=== PATIENT | female | born 1950 | race Caucasian/White ===

== ENCOUNTER 2016-09-10 15:26 | Inpatient (IN) | payer MEDICAID ==
[~2016-09-10] VITALS: Ht 152.4 cm; Wt 84.3 kg
[~2016-09-10 15:26] MED LIST: ASPI81TA3 PO; ATOR40TA68 PO; CALC200T26 PO; CHOL100062 PO; DOCU-144 PO; FERGON PO; FURO20TA3 PO; HYDR-3671 PO; IBUP-1542 PO; ISOS30TA5 PO; LANT3I SC; NITR0.4T6 SL
[2016-09-10] MEDS ORDERED: SOD CHLORIDE 0.9% 1,000 ML IV STA ×2 (15:31→17:10)
--- NOTE | 2016-09-10 16:32 | RADRPT ---
PROCEDURE: Chest Radiograph. CLINICAL INDICATION: Sepsis TECHNIQUE: Single frontal chest radiograph. COMPARISON: Chest radiograph 02/10/2016 FINDINGS: Heart size is within normal limits. Atherosclerotic calcifications are present. No infiltrate or effusion is seen. The bones are intact. IMPRESSION: 1. No evidence of acute cardiopulmonary disease. 2. Atherosclerotic vascular disease. RPTAT: KK .Pasha Obrien MD, Date Time Electronically viewed and signed by .Pasha Obrien MD, MD on 09/10/2016 16:31 .B/
[2016-09-10 16:37] LABS: ADD SCAN DIFF NO
[2016-09-10 16:38] LABS: BASOPHILS % 0.4 % (0.0-2.0); EOSINOPHILS # 0.1 10^3/ul (0.0-0.5); EOSINOPHILS % 0.9 % (0.0-7.0); HEMATOCRIT 26.1 % (37.0-47.0); HEMOGLOBIN 8.5 g/dl (12.0-16.0); MEAN CORPUSCULAR HGB CONC 32.6 g/dl (32.0-37.0); MEAN CORPUSCULAR VOLUME 85.9 fl (82.0-101.0); MEAN PLATELET VOLUME 12.1 fl (7.4-10.4); MONOCYTE # 0.5 10^3/ul (0.3-0.9); MONOCYTES % 6.4 % (0.0-11.0); NEUTROPHIL # 5.1 10^3/ul (1.6-7.5); NEUTROPHILS % 66.2 % (39.0-77.0); PLATELET COUNT 173 10^3/UL (140-415); RED BLOOD COUNT 3.04 10^6/ul (4.20-5.40); RED CELL DISTRIBUTION WIDTH 13.5 % (11.5-14.5); WHITE BLOOD COUNT 7.7 10^3/ul (4.8-10.8)
[2016-09-10 16:50] LABS: ALBUMIN 2.9 g/dl (3.3-4.9); CHLORIDE 107 mmol/L (97-110); POTASSIUM 5.5 mmol/L (3.5-5.1); SODIUM 135 mmol/L (135-144)
[2016-09-10 16:51] LABS: INR 0.98
[2016-09-10 16:52] LABS: BILIRUBIN,INDIRECT 0.1 mg/dl (0-1.1); BILIRUBIN,TOTAL 0.1 mg/dl (0.2-1.3); CREATININE 3.66 mg/dl (0.44-1.00); PARTIAL THROMBOPLASTIN TIME 26.4 Sec (25.0-35.0)
[2016-09-10 16:53] LABS: ALANINE AMINOTRANSFERASE 23 IU/L (13-69); ALBUMIN/GLOBULIN RATIO 0.85; ALKALINE PHOSPHATASE 102 IU/L (42-121); ANION GAP 18 (8-16); ASPARTATE AMINO TRANSFERASE 23 IU/L (15-46); BLOOD UREA NITROGEN 52 mg/dl (7-20); CARBON DIOXIDE 16 mmol/L (21-31); GLUCOSE 333 mg/dl (70-220); TOTAL PROTEIN 6.3 g/dl (6.1-8.1)
[2016-09-10 16:54] LABS: CALCIUM 7.6 mg/dl (8.4-10.2)
[2016-09-10] MEDS ORDERED: LACTATED RINGER'S 1,000 ML IV STA (17:10)
[2016-09-10] MEDS ORDERED: INSULIN HUMAN REGULAR 100 UNIT in SOD CHLORIDE 0.9% 99 ML IV STA (17:10)
[2016-09-10 17:12] LABS: TROPONIN-I < 0.012 ng/ml (0.00-0.12)
[2016-09-10] MEDS ORDERED: ACCU-CHEK XX SCH (17:30)
[2016-09-10] MEDS ORDERED: GLUCAGON 1 MG INJ IM PRN ×2 (17:30→19:30)
[2016-09-10] MEDS ORDERED: GLUCOSE GEL 15 GRAM TUBE BUCCAL PRN ×2 (17:30→19:30)
[2016-09-10] MEDS ORDERED: DEXTROSE 50% 50 ML SYRINGE IV PRN ×4 (17:30→19:30)
[2016-09-10] MEDS ORDERED: GLUCOSE GEL 15 GRAM TUBE PO PRN ×4 (17:30→19:30)
[2016-09-10] MEDS ORDERED: CLOP75TA4 PO (17:38)
[2016-09-10] MEDS ORDERED: INSU100I12 SQ (17:38)
[2016-09-10] MEDS ORDERED: BACTDS PO (17:39)
[2016-09-10] MEDS ORDERED: METO-429 PO (17:40)
[2016-09-10] MEDS ORDERED: ATOR80TA75 PO (17:40)
[2016-09-10] MEDS ORDERED: LORA-186 PO (17:41)
[2016-09-10 18:07] LABS: ADD UMIC YES; URINE BILIRUBIN (Dip) NEGATIVE (NEGATIVE); URINE BLOOD (Dip) NEGATIVE (NEGATIVE); URINE COLOR LT. YELLOW (YELLOW); URINE KETONES (Dip) NEGATIVE (NEGATIVE); URINE LEUKOCYTE ESTERASE (Dip) NEGATIVE (NEGATIVE); URINE NITRITE (Dip) NEGATIVE (NEGATIVE); URINE TOTAL PROTEIN (Dip) 4+ (NEGATIVE); URINE UROBILINOGEN (Dip) 0.2 E.U./dL (0.1-1.0)
[2016-09-10 18:24] LABS: BACTERIA,URINE MODERATE; SQUAMOUS EPITHELIAL CELL,UR MODERATE; URINE RBCS 0-2 /HPF (0)
--- NOTE | 2016-09-10 18:31 | ERA ---
ER Documentation Chief Complaint Date/Time DATE: 09/10/16 TIME: 18:29 Chief Complaint DIZZINESS; BIBA FROM URGENT CARE D/T ORTHSTATIC VITAL SIGNS HPI Patient is a 65-year-old female with coronary disease, hypertension, and diabetes who presents with dizziness. The patient came from an urgent care clinic where she was feeling dizzy. The patient was brought in by ambulance. She says that for the past 3 days she has been "feeling bad". She feels weak. She has been urinating more often. She feels dizzy. She has had palpitations. She denies fevers. She has had no treatment as of yet. Upon review of old medical records this the patient's third visit to the ER since 2016. ROS All systems reviewed and are negative except as per history of present illness. Medications Home Meds Active Scripts Hydralazine Hcl* (Hydralazine Hcl*) 25 Mg Tab, 25 MG PO BID, #60 TAB Prov:DERRICK MEEKS MD 11/14/15 Docusate Sodium* (Colace*) 100 Mg Capsule, 100 MG PO BID, #60 CAP Prov:DERRICK MEEKS MD 11/14/15 Aspirin (Aspirin) 81 Mg Chew, 81 MG PO DAILY, #30 TAB Prov:DERRICK MEEKS MD 11/14/15 Reported Medications Loratadine* (Claritin*) 10 Mg Tablet, 10 MG PO DAILY, TAB 09/10/16 Atorvastatin* (Atorvastatin*) 80 Mg Tablet, 80 MG PO DAILY, #30 TAB 09/10/16 Metoprolol Tartrate* (Lopressor*) 50 Mg Tab, 25 MG PO BID, #60 TAB 09/10/16 Sulfamethoxazole-Trimethoprim* (Bactrim* DS) 800-160 Mg Tab, 1 TAB PO Q12H, #20 TAB 09/10/16 Clopidogrel Bisulfate* (Clopidogrel Bisulfate*) 75 Mg Tablet, 75 MG PO DAILY, # 30 TAB 09/10/16 Insulin Lispro (Humalog Kwikpen U-100) 100 Unit/1 Ml Insuln.pen, 20 UNIT SQ TID 09/10/16 Insulin Glargine* (Lantus*) 100 Unit/Ml Soln, 40 UNIT SC QAM, #1 VIAL 02/10/16 Discontinued Reported Medications Cholecalciferol* (Vitamin D3*) 1,000 Unit Tablet, 1000 UNIT PO DAILY, TAB 02/10/16 Furosemide* (Furosemide*) 20 Mg Tablet, 20 MG PO DAILY, #60 TAB 11/07/15 Discontinued Scripts Ibuprofen* (Ibuprofen*) 600 Mg Tablet, 600 MG PO Q8 for PAIN AND/OR INFLAMMATION , #30 TAB Prov:GERMAN REES MD 02/10/16 Nitroglycerin* (Nitroglycerin* SL) 0.4 Mg Tab.subl, 0.4 MG SL Q5MIN Y for CHEST PAIN, #30 BOTTLE Prov:GERMAN REES MD 02/10/16 Isosorbide Mononitrate* (Isosorbide Mononitrate*) 30 Mg Tab.er.24h, 30 MG PO BID , #60 TAB Prov:DERRICK MEEKS MD 11/14/15 Ferrous Gluconate* (Fergon*) 325 Mg Tab, 325 MG PO BID, #60 TAB Prov:DERRICK MEEKS MD 11/14/15 Calcium Carbonate (CALCIUM CARBONATE) 200 Mg Tab.chew, 500 MG PO PC MEALS, #30 TAB.CHEW Prov:DERRICK MEEKS MD 11/14/15 Atorvastatin* (Atorvastatin*) 40 Mg Tablet, 40 MG PO QHS, #30 TAB Prov:DERRICK MEEKS MD 11/14/15 Allergies Allergies: Coded Allergies: Penicillins (Verified Allergy, Unknown, 09/10/16) PMhx/Soc History of Surgery: Yes (stent placement ) Anesthesia Reaction: No Hx Neurological Disorder: No Hx Respiratory Disorders: No Hx Cardiac Disorders: Yes (HTN) Hx Psychiatric Problems: No Hx Miscellaneous Medical Probl: Yes (DM, ACUTE RENAL FAILURE) Hx Alcohol Use: No Hx Substance Use: No Hx Tobacco Use: No Smoking Status: Never smoker FmHx Family History: diabetes Physical Exam Vitals Vital Signs Date Time Temp Pulse Resp B/P Pulse Ox O2 Delivery O2 Flow Rate FiO2 09/10/16 18:00 76 20 138/64 99 Room Air 09/10/16 16:16 98.6 78 20 99/50 98 09/10/16 16:00 Nasal Cannula 2 Physical Exam Const: No acute distress Head: Atraumatic Eyes: Normal Conjunctiva ENT: Normal External Ears, Nose and Mouth. Neck: Full range of motion..~ No meningismus. Resp: Clear to auscultation bilaterally Cardio: Regular rate and rhythm, no murmurs Abd: Soft, non tender, non distended. Normal bowel sounds Skin: No petechiae or rashes Back: No midline or flank tenderness Ext: No cyanosis, or edema Neur: Awake and alert Psych: Normal Mood and Affect Result Diagram: 09/10/16 1610 09/10/16 1610 Results 24 hrs Laboratory Tests Test 09/10/16 16:10 09/10/16 17:35 09/10/16 17:48 White Blood Count 7.710^3/ul Red Blood Count 3.0410^6/ul Hemoglobin 8.5g/dl Hematocrit 26.1% Mean Corpuscular Volume 85.9fl Mean Corpuscular Hemoglobin 28.0pg Mean Corpuscular Hemoglobin Concent 32.6g/dl Red Cell Distribution Width 13.5% Platelet Count 53874^3/UL Mean Platelet Volume 12.1fl Neutrophils % 66.2% Lymphocytes % 26.0% Monocytes % 6.4% Eosinophils % 0.9% Basophils % 0.4% Nucleated Red Blood Cells % 0.0/100WBC Neutrophils # 5.110^3/ul Lymphocytes # 2.010^3/ul Monocytes # 0.510^3/ul Eosinophils # 0.110^3/ul Basophils # 0.010^3/ul Nucleated Red Blood Cells # 0.010^3/ul Prothrombin Time 13.0Sec Prothrombin Time Ratio 1.0 INR International Normalized Ratio 0.98 Activated Partial Thromboplast Time 26.4Sec Sodium Level 135mmol/L Potassium Level 5.5mmol/L Chloride Level 107mmol/L Carbon Dioxide Level 16mmol/L Anion Gap 18 Blood Urea Nitrogen 52mg/dl Creatinine 3.66mg/dl Glucose Level 333mg/dl Lactic Acid Level 1.7mmol/L Calcium Level 7.6mg/dl Total Bilirubin 0.1mg/dl Direct Bilirubin 0.00mg/dl Indirect Bilirubin 0.1mg/dl Aspartate Amino Transf (AST/SGOT) 23IU/L Alanine Aminotransferase (ALT/SGPT) 23IU/L Alkaline Phosphatase 102IU/L Troponin I < 0.012ng/ml Total Protein 6.3g/dl Albumin 2.9g/dl Globulin 3.40g/dl Albumin/Globulin Ratio 0.85 Urine Color LT. YELLOW Urine Clarity CLEAR Urine pH 6.5 Urine Specific [place] 1.020 Urine Ketones NEGATIVE Urine Nitrite NEGATIVE Urine Bilirubin NEGATIVE Urine Urobilinogen 0.2 E.U./dL Urine Leukocyte Esterase NEGATIVE Urine Microscopic RBC 0-2/HPF Urine Microscopic WBC 10-25/HPF Urine Squamous Epithelial Cells MODERATE Urine Bacteria MODERATE Urine Hyaline Casts OCCASIONAL Urine Coarse Granular Casts OCCASIONAL Urine Hemoglobin NEGATIVE Urine Glucose 0.25%% Urine Total Protein 4+ Bedside Glucose 212mg/dL Current Medications Medications (Trade) Dose Ordered Sig/[place] Route PRN Reason Start Time Stop Time Status Last Admin Dose Admin Sodium Chloride 1,000 ml @ 1,000 mls/hr Q1H STAT IV 09/10/16 15:31 09/10/16 16:30 DC 09/10/16 15:00 Sodium Chloride 1,000 ml @ 1,000 mls/hr Q1H STAT IV 09/10/16 17:10 09/10/16 18:09 DC 09/10/16 17:17 Lactated Ringer's 1,000 ml @ 1,000 mls/hr Q1H STAT IV 09/10/16 17:10 09/10/16 18:09 DC Insulin Human Regular/Sodium Chloride (Novolin-R/NS) 100 ml @ 7 mls/hr [id number] STAT IV 09/10/16 17:10 09/11/16 07:27 09/10/16 17:58 Miscellaneous Information 1 ea NOTE XX 09/10/16 17:30 Glucose (Glutose) 15 gm Q15M PRN PO DECREASED GLUCOSE 09/10/16 17:30 Glucose (Glutose) 22.5 gm Q15M PRN PO DECREASED GLUCOSE 09/10/16 17:30 Dextrose (D50w Syringe) 25 ml Q15M PRN IV DECREASED GLUCOSE 09/10/16 17:30 Dextrose (D50w Syringe) 50 ml Q15M PRN IV DECREASED GLUCOSE 09/10/16 17:30 Glucagon (Glucagen) 1 mg Q15M PRN IM DECREASED GLUCOSE 09/10/16 17:30 Glucose (Glutose) 15 gm Q15M PRN BUCCAL DECREASED GLUCOSE 09/10/16 17:30 Diagnostic Test (Pha) (Accu-Chek) 1 ea Q1H XX 09/10/16 17:30 Procedures/MDM EKG read by me: Rate/Rhythm: Regular rate and rhythm at a normal rate Intervals: Normal Impression: No evidence of ischemia or arrhythmia Patient is a 65-year-old female presents with acute dizziness. The patient was found to have acute diabetic ketoacidosis with a bicarb of 16 and an elevated anion gap. I believe that the patient will require fluids and insulin drip. She has been given 2 L of normal saline 1 L of lactated Ringer's as is our protocol here and was started on an insulin drip at 7 U/h. I spoke with Dr. Jensen from the panel team for admission as the patient has previously been admitted to the panel team for ICU admission. The patient also has anemia with a hemoglobin of 8.5 but at this point does not require transfusion. I doubt sepsis at this time. Critical Care: Time: 35 minutes excluding all billable procedures. Treatments/Evaluations: Close monitoring and treatment of unstable vital signs, cardiorespiratory, and neurologic status, while maintaining tight balance of fluid, respiratory, and cardiac interventions. Departure Diagnosis: Primary Impression: DKA (diabetic ketoacidoses) Qualified Code: E13.10 - Diabetic ketoacidosis without coma associated with other specified diabetes mellitus Additional Impressions: Dizziness Anemia Qualified Code: D64.9 - Anemia, unspecified type Condition: Critical MIGUEL STEIN MD Sep 10, 2016 18:31
[2016-09-10] MEDS: SOD CHLORIDE 0.9% 1,000 ML IV SCH (18:46)
[2016-09-10] MEDS ORDERED: ONDANSETRON 4 MG INJ IV PRN (19:00)
[2016-09-10] MEDS ORDERED: ZOLPIDEM 5 MG TAB PO PRN (19:00)
[2016-09-10] MEDS ORDERED: NACL 0.9% 3 ML SYG IV SCH (19:00)
[2016-09-10] MEDS ORDERED: DOCUSATE SODIUM 100 MG CAP PO PRN (19:00)
[2016-09-10] MEDS ORDERED: HYDROCODONE/APAP (5/325) TAB PO PRN (19:00)
[2016-09-10] MEDS ORDERED: morphine 2 MG INJ IV PRN (19:00)
[2016-09-10] MEDS ORDERED: CIPROFLOXACIN 400MG/D5W 200 ML IVPB ONE (19:00)
--- NOTE | 2016-09-10 19:49 | HP ---
DATE OF ADMISSION: 09/10/2016 CHIEF COMPLAINT: Dizziness, dysuria. HISTORY OF PRESENT ILLNESS: The patient is a 65-year-old female with a history of CKD, hypertension , diabetes. The patient presents with dizziness, dysuria, and urgency as well as lower abdominal pa in. In the ED, patient was noted to have a UTI based on the UA. In addition, the patient had worse kelsey renal function. The patient has no other complaints at this time. PAST MEDICAL HISTORY: As per HPI. HOME MEDICATIONS: Please see medication reconciliation. ALLERGIES: PENICILLIN. FAMILY HISTORY: Noncontributory. SOCIAL HISTORY: No reports of alcohol, tobacco, or drugs. REVIEW OF SYSTEMS: A 12-point review of systems negative except for that as noted in HPI. PHYSICAL EXAMINATION: VITAL SIGNS: Temperature is 98.6, pulse 76, respiratory rate 20, blood pressure 138/64, saturation 99% on room air. GENERAL: Mild distress, alert, and oriented. HEENT: Normocephalic, atraumatic. LUNGS: Clear to auscultation. CARDIOVASCULAR: Regular rate and rhythm. ABDOMEN: Nondistended, soft. Mild tenderness to palpation in the lower epigastrium. EXTREMITIES: No clubbing, cyanosis, or edema. LABORATORIES: White count 7.7, hemoglobin is 8.5, platelets are 173. Chemistry: Sodium is 135, po tassium is 5.5, carbon dioxide 16, anion gap is 18, BUN is 52, creatinine is 2.66, glucose 333. INR is 0.98. UA shows no ketones, WBCs 10 to 25, leukocyte esterase negative. DIAGNOSTICS: Chest x-ray shows no evidence of any acute cardiopulmonary disease, atherosclerotic va scular disease. ASSESSMENT AND PLAN: 1. Symptomatic urinary tract infection. The patient has dizziness with suprapubic pain, dysuria, a nd urgency. This is all secondary to urinary tract infection. Will treat with Rocephin IV. We kandy l follow up on blood and urine cultures. 2. Acute on chronic kidney disease. The patient does have baseline chronic kidney disease from mary ascencio. The patient does now have acute worsening of the renal function. Will treat with IV fluids. Will get a renal consultation. 3. Diabetes. Continue home insulin. We will also treat with sliding scale. 4. Hypertension. Continue home medications. 5. Hyperkalemia. Status post insulin in the ED. Will treat with IV fluids. Will follow up with n ephrology recommendations. Once again, this is from her acute on chronic kidney disease. 6. Prophylaxis. Sequential compression devices. Dictated By: ROMEO NIEVES MD BS/NTS Conf#: [id number] DID#: [id number]
[2016-09-10 20:55] VITALS: PULSE 80
[2016-09-10 21:00] VITALS: Ht 152.4 cm; Wt 84.3 kg
[2016-09-10] MEDS: INSULIN ASPART [NOVOLOG] 3 ML PEN SC SCH (21:00)
[2016-09-10] MEDS ORDERED: METOPROLOL 50 MG TAB PO SCH (21:00)
[2016-09-10] MEDS ORDERED: NON-FORMULARY/PATIENT OWN MED (Insulin Lispro (Humalog Kwikpen U-100) 20 UNIT) SQ SCH (21:00)
[2016-09-10 21:08] VITALS: BP 144/87; RESP 20
[2016-09-10] MEDS: DOCUSATE SODIUM 100 MG CAP PO SCH (22:14)
[2016-09-10] MEDS: METOPROLOL 25 MG TAB PO SCH (22:15)
[2016-09-10 23:44] VITALS: BP 140/66; RESP 20
[2016-09-11] VITALS (10 sets, daily range): BP systolic 129–169; BP diastolic 62–98; PULSE 74–89; RESP 18–20
[2016-09-11] MEDS: CEFTRIAXONE 1 GM/50 ML (PMX) 50 ML IVPB SCH ×2 (01:01→18:26)
[2016-09-11] MEDS: ACCUCHECK AT 2AM (Patients on SS coverage) XX SCH (04:10)
[2016-09-11] MEDS: SOD CHLORIDE 0.9% 1,000 ML IV SCH ×2 (04:11→14:46)
[2016-09-11] MEDS: INSULIN ASPART [NOVOLOG] 3 ML PEN SC SCH ×7 (08:00→21:47)
[2016-09-11 08:16] LABS: ADD SCAN DIFF NO
[2016-09-11 08:17] LABS: BASOPHILS % 0.7 % (0.0-2.0); EOSINOPHILS # 0.2 10^3/ul (0.0-0.5); EOSINOPHILS % 2.6 % (0.0-7.0); HEMATOCRIT 27.5 % (37.0-47.0); HEMOGLOBIN 8.8 g/dl (12.0-16.0); LYMPHOCYTES # 2.3 10^3/ul (0.8-2.9); LYMPHOCYTES % 38.7 % (15.0-51.0); MEAN CORPUSCULAR HEMOGLOBIN 27.8 pg (29.0-33.0); MEAN PLATELET VOLUME 12.1 fl (7.4-10.4); MONOCYTE # 0.5 10^3/ul (0.3-0.9); MONOCYTES % 8.6 % (0.0-11.0); NEUTROPHILS % 49.1 % (39.0-77.0); PLATELET COUNT 158 10^3/UL (140-415); RED BLOOD COUNT 3.16 10^6/ul (4.20-5.40); RED CELL DISTRIBUTION WIDTH 13.6 % (11.5-14.5); WHITE BLOOD COUNT 6.1 10^3/ul (4.8-10.8)
[2016-09-11 08:39] LABS: CALCIUM 7.5 mg/dl (8.4-10.2); CREATININE 2.95 mg/dl (0.44-1.00); MAGNESIUM 1.8 mg/dl (1.7-2.5); PHOSPHORUS 4.7 mg/dl (2.5-4.9); POTASSIUM 4.7 mmol/L (3.5-5.1)
[2016-09-11] MEDS ORDERED: INSULIN GLARGINE [LANtus] 3 ML PEN SC SCH (09:00)
[2016-09-11] MEDS: DOCUSATE SODIUM 100 MG CAP PO SCH ×2 (09:37→21:38)
[2016-09-11] MEDS: ATORVASTATIN 80 MG TAB PO SCH (09:38)
[2016-09-11] MEDS: CLOPIDOGREL 75 MG TAB PO SCH (09:38)
[2016-09-11] MEDS: METOPROLOL 25 MG TAB PO SCH ×2 (09:39→21:39)
[2016-09-11] MEDS: ASPIRIN 81 MG TAB PO SCH (09:39)
--- NOTE | 2016-09-11 11:04 | CONS ---
DATE OF ADMISSION: 09/10/2016 DATE OF CONSULTATION: TYPE OF CONSULTATION: Nephrology. REASON FOR CONSULTATION: Acute kidney injury. PHYSICIAN REQUESTING CONSULT: Dr. Jensen. HISTORY OF PRESENT ILLNESS: This is a 65-year-old female with a past medical history of diabetes, h istory of chronic kidney disease stage IIIB with a previous baseline creatinine around 1.5 mg/dL, hi story of nephrotic range proteinuria, diabetic nephropathy, history of anemia, hypertension, history of coronary artery disease who presents to [facility] with complaints of dizzines s. The patient states that over the past several days she has been feeling bad, weak, she describes palpitations. The patient as a result came into the emergency room. The patient upon arrival had laboratory data drawn, which showed acidosis, acute kidney injury and hyperkalemia. The patient was subsequently started on IV hydration, given insulin and admitted to telemetry for further evaluatio n. In terms of patient's renal history, the patient had a previous baseline creatinine of 1.5 mg/dL. U yoanna admission, creatinine was noted to be 3.66 mg/dL, which improved to 2.9 mg/dL with IV fluids. T he patient denies any dysuria, hematuria, hemoptysis, hematemesis, any new rash. PAST MEDICAL HISTORY: As stated above, history of CKD stage IIIB, history of nephrotic range protei francesca, diabetic nephropathy, history of hypertension, history of coronary artery disease, history of diabetes. PAST SURGICAL HISTORY: Status post stent placement. ALLERGIES: THE PATIENT IS ALLERGIC TO PENICILLIN. FAMILY HISTORY: No family history of kidney disease or heart disease. SOCIAL HISTORY: Does not drink, smoke or do drugs. MEDICATIONS: The patient's medication reviewed. REVIEW OF SYSTEMS: A 14-point review of systems was conducted. Pertinent positives stated in HPI, otherwise negative. PHYSICAL EXAMINATION: VITAL SIGNS: Blood pressure 142/60, respiration 18, pulse 81, temperature 98.0. HEENT: Head is normocephalic. NECK: Supple. HEART: Regular rate. LUNGS: Show diminished breath sounds at base. ABDOMEN: Soft, nontender to palpation. No rebound or guarding. EXTREMITIES: Negative for clubbing, cyanosis, or edema. DERMATOLOGIC: No rashes. NEUROLOGIC: No focal deficits. LABORATORY DATA: Shows sodium 138, potassium 4.7, chloride 116, bicarbonate 16, BUN 41, creatinine 2.95. White count 6.1, hemoglobin 8.8, hematocrit 27.5, platelet count 158. The patient's urinalys is shows evidence of coarse granular casts, hyaline casts, +4 proteinuria. IMAGING: The patient's chest x-ray shows no acute findings. ASSESSMENT AND PLAN: This is a 65-year-old female who presents with: 1. Nonoliguric acute kidney injury on top of chronic kidney disease stage III with a previous basel ine creatinine 1.5 mg/dL. Etiology of current acute kidney injury is secondary to acute tubular nec rosis, hemodynamics. The patient's urinalysis shows evidence of coarse granular and hyaline casts c onsistent with tubular injury. The patient also has +4 proteinuria. Low suspicion for acute glomer ulonephritis, vasculitis or interstitial nephritis at this time. The patient's renal function has a lso been improving with IV hydration. The plan at this point is to check a FENa and fractional excr etion of urea. We will quantify the patient's proteinuria by checking a protein/creatinine ratio an d albumin/creatinine ratio. We will continue with IV hydration at this time. Will check a renal ul trasound to reevaluate renal parenchyma and rule out obstruction, although suspicion is low. Will o therwise continue supportive care, renally dose medications, avoid nephrotoxins. 2. Chronic kidney disease, stage III, with nephrotic range proteinuria. Etiology is likely seconda ry to diabetic nephropathy. Patient is currently in acute kidney injury as stated above. Plan is t o continue disease factor modification, continue good glycemic and blood pressure control. Will als o check an SPEP, UPEP with immunofixation given the patient's history of proteinuria. Defer any CHRISTI inhibitor or ARB at this time in the setting of acute kidney injury. 3. Hyperchloremic metabolic acidosis. Etiology secondary to acute kidney injury I conjunction with IV fluids. Will continue to monitor. Consider checking an ABG. 4. Anemia, likely of chronic disease. Monitor hemoglobin and hematocrit levels. 5. Mineral bone disorder. Continue to monitor calcium, phosphorus levels. No need for phosphate b inders. 6. Urinary tract infection. Continue IV antibiotics. 7. Diabetes. Continue current insulin regimen. 8. Hypertension. Continue current blood pressure regimen. 9. Hyperkalemia, resolved. Thank you, Dr. Jensen, for this interesting consult. It will be a pleasure to follow patient with you throughout the hospital course. Dictated By: ANDRES LIEBERMAN/BOBBY Conf#: [id number] DID#: [id number]
--- NOTE | 2016-09-11 11:07 | RADRPT ---
PROCEDURE: US Renal CLINICAL INDICATION: Acute renal insufficiency. TECHNIQUE: Multiple sonographic images of the kidneys and bladder were obtained. Evaluation of th e kidneys and bladder was performed as well with ventura scale and color and Doppler evaluation using a curved array transducer. The images were reviewed on a high-resolution PACS workstation. COMPARISON: Renal ultrasound from 11/08/2015. FINDINGS: The right kidney measures 8.1 cm. The left kidney measures 9.3 cm. Kidneys are borderline small and demonstrate a slightly echogenic renal parenchyma. There are two nonobstructing calculi in the upper pole of the left kidney.. No perinephric fluid collection is seen. Urinary bladder is partially distended demonstrates mild diffuse wall thickening. IMPRESSION: 1. Small echogenic kidneys consistent with medical renal disease. 2. Two nonobstructing calculi in the upper pole of the left kidney. 3. Diffuse mild thickening of the partially distended urinary bladder. This is of uncertain signif icance but may be seen with cystitis or infiltrating process. Further urologic evaluation may be ap propriate. RPTAT: [facility] Physician Kana Date Time Electronically viewed and signed by Physician Kana on 09/11/2016 11:07 /
--- NOTE | 2016-09-11 16:52 | PN ---
Date/Time of Note Date/Time of Note DATE: 09/11/16 TIME: 16:44 Assessment/Plan VTE Prophylaxis VTE Prophylaxis Intervention: SCD's Lines/Catheters IV C[facility]ter Type [facility]from [facility] Peripheral IV Assessment/Plan Chief Complaint/Hosp Course 1. Symptomatic urinary tract infection Cultures are negative so far, continue Rocephin IV 2. Acute on chronic kidney disease-improved with IV fluids Nephrology consultation appreciated 3. Diabetes-currently controlled but A1c at 11.7 Insulin decreased because of hypoglycemia 4. Hypertension- Continue home medications. 5. Hyperkalemia-resolved 6. Prophylaxis-Sequential compression devices Problems: Subjective 24 Hr Interval Summary Constitutional: no complaints Exam/Review of Systems Vital Signs Vitals Vital Signs Date Time Temp Pulse Resp B/P Pulse Ox O2 Delivery O2 Flow Rate FiO2 09/11/16 16:09 74 09/11/16 15:56 97.9 18 129/98 97 09/10/16 19:43 Nasal Cannula 3.0 Intake and Output 09/10/16 09/10/16 09/11/16 15:00 23:00 07:00 Intake Total 1160 ml Balance 1160 ml Exam Constitutional: alert, oriented Respiratory: clear to auscultation Cardiovascular: regular rate and rhythm Gastrointestinal: soft, No distended Musculoskeletal: nl extremities to inspection Results Result Diagram: 09/11/16 0738 09/11/16 0738 Results 24 hrs Laboratory Tests Test 09/10/16 17:35 09/10/16 17:48 09/10/16 17:50 09/10/16 19:01 Urine Color LT. YELLOW Urine Clarity CLEAR Urine pH 6.5 Urine Specific [place] 1.020 Urine Ketones NEGATIVE Urine Nitrite NEGATIVE Urine Bilirubin NEGATIVE Urine Urobilinogen 0.2 E.U./dL Urine Leukocyte Esterase NEGATIVE Urine Microscopic RBC 0-2 Urine Microscopic WBC 10-25 Urine Squamous Epithelial Cells MODERATE Urine Bacteria MODERATE Urine Hyaline Casts OCCASIONAL Urine Coarse Granular Casts OCCASIONAL Urine Hemoglobin NEGATIVE Urine Glucose 0.25% H Urine Total Protein 4+ H Bedside Glucose 212 88 Lactic Acid Level 1.1 Test 09/10/16 19:37 09/10/16 20:05 09/10/16 20:51 09/10/16 21:25 Bedside Glucose 44 *L 88 147 Lactic Acid Level 1.4 Test 09/11/16 04:06 09/11/16 07:38 09/11/16 08:24 09/11/16 12:24 Bedside Glucose 146 100 38 *L White Blood Count 6.1 # Red Blood Count 3.16 L Hemoglobin 8.8 L Hematocrit 27.5 L Mean Corpuscular Volume 87.0 Mean Corpuscular Hemoglobin 27.8 L Mean Corpuscular Hemoglobin Concent 32.0 Red Cell Distribution Width 13.6 Platelet Count 158 Mean Platelet Volume 12.1 H Neutrophils % 49.1 Lymphocytes % 38.7 Monocytes % 8.6 Eosinophils % 2.6 Basophils % 0.7 Nucleated Red Blood Cells % 0.0 Neutrophils # 3.0 Lymphocytes # 2.3 Monocytes # 0.5 Eosinophils # 0.2 Basophils # 0.0 Nucleated Red Blood Cells # 0.0 Sodium Level 138 Potassium Level 4.7 Chloride Level 116 H Carbon Dioxide Level 16 L Anion Gap 11 # Blood Urea Nitrogen 41 #H Creatinine 2.95 H Glucose Level 109 # Hemoglobin A1c 11.7 H Calcium Level 7.5 L Phosphorus Level 4.7 Magnesium Level 1.8 Test 09/11/16 14:39 Bedside Glucose 115 Medications Medications Current Medications Sodium Chloride (NS) 1,000 ml @ 100 mls/hr Q10H IV Last administered on 14:46; Admin Dose 100 MLS/HR; Start 09/10/16 at 18:46 Ondansetron HCl (Zofran Inj) 4 mg Q6H PRN IV NAUSEA AND/OR VOMITING; Start 03/19 at 19:00 Acetaminophen (Tylenol Tab) 650 mg Q6H PRN PO PAIN LEVEL 1-3 OR FEVER; Start at 19:00 Acetaminophen/ Hydrocodone Bitart ([place] (5/325)) 1 tab Q6H PRN PO MODERATE PAIN LEVEL 4-6; Start 09/10/16 at 19:00 Morphine Sulfate (morphine) 2 mg Q4H PRN IV SEVERE PAIN LEVEL 7-10; Start 09/10 at 19:00 Docusate Sodium (Colace) 100 mg Q12H PRN PO CONSTIPATION; Start 09/10/16 at 19: 00 Zolpidem Tartrate 5 mg 5 mg QHS PRN PO SLEEP; Start 09/10/16 at 19:00 Ceftriaxone Sodium (Rocephin) 50 ml @ 100 mls/hr Q24H IVPB Last administered on 09/11/16 01:01; Admin Dose 100 MLS/HR; Start 09/10/16 at 19:00 Aspirin (Aspirin) 81 mg DAILY PO Last administered on 09/11/16 09:39; Admin Dose 81 MG; Start 09/11/16 at 09:00 Atorvastatin Calcium (Lipitor) 80 mg DAILY PO Last administered on 09/11/16 09 :38; Admin Dose 80 MG; Start 09/11/16 at 09:00 Clopidogrel Bisulfate (plaVIX) 75 mg DAILY PO Last administered on 09/11/16 09 :38; Admin Dose 75 MG; Start 09/11/16 at 09:00 Docusate Sodium (Colace) 100 mg BID PO Last administered on 09/11/16 09:37; Admin Dose 100 MG; Start 09/10/16 at 21:00 Hydralazine HCl (Apresoline) 25 mg BID PO Last administered on 09/11/16 09:40 ; Admin Dose 25 MG; Start 09/10/16 at 21:00 Loratadine (Claritin) 10 mg DAILY PO ; Start 09/11/16 at 09:00 Miscellaneous Information 1 ea NOTE XX ; Start 09/10/16 at 19:30 Glucose (Glutose) 15 gm Q15M PRN PO DECREASED GLUCOSE; Start 09/10/16 at 19:30 Glucose (Glutose) 22.5 gm Q15M PRN PO DECREASED GLUCOSE; Start 09/10/16 at 19: 30 Dextrose (D50w Syringe) 25 ml Q15M PRN IV DECREASED GLUCOSE; Start 09/10/16 at 19:30 Dextrose (D50w Syringe) 50 ml Q15M PRN IV DECREASED GLUCOSE; Start 09/10/16 at 19:30 Glucagon (Glucagen) 1 mg Q15M PRN IM DECREASED GLUCOSE; Start 09/10/16 at 19:30 Glucose (Glutose) 15 gm Q15M PRN BUCCAL DECREASED GLUCOSE; Start 09/10/16 at 19 :30 Diagnostic Test (Pha) (Accu-Chek) 1 ea 02 XX Last administered on 09/11/16 04: 10; Admin Dose 1 EA; Start 09/11/16 at 02:00 Metoprolol Tartrate (Lopressor) 25 mg BID PO Last administered on 09/11/16 09: 39; Admin Dose 25 MG; Start 09/10/16 at 21:00 Insulin Glargine (Lantus) 20 unit QAM SC ; Start 09/12/16 at 09:00 ROMEO NIEVES Sep 11, 2016 16:52
[2016-09-11] MEDS: LORATADINE 10 MG TAB PO SCH (17:32)
[2016-09-12] VITALS (16 sets, daily range): BP systolic 96–205; BP diastolic 55–89; PULSE 74–92; RESP 16–20
[2016-09-12] MEDS: SOD CHLORIDE 0.9% 1,000 ML IV SCH (02:46)
[2016-09-12] MEDS: ACCUCHECK AT 2AM (Patients on SS coverage) XX SCH (02:54)
[2016-09-12] MEDS ORDERED: DIPHENHYDRAMINE 25 MG CAP PO PRN (03:00)
[2016-09-12] MEDS: ACETAMINOPHEN 325 MG TAB PO PRN ×2 (04:23→20:13)
[2016-09-12 04:27] LABS: PROTEIN, TOTAL 5.5 g/dL (6.1-8.1)
[2016-09-12 07:37] LABS: ADD SCAN DIFF NO
[2016-09-12 07:46] LABS: BASOPHILS % 0.4 % (0.0-2.0); EOSINOPHILS # 0.3 10^3/ul (0.0-0.5); EOSINOPHILS % 3.4 % (0.0-7.0); HEMOGLOBIN 9.2 g/dl (12.0-16.0); LYMPHOCYTES # 2.6 10^3/ul (0.8-2.9); LYMPHOCYTES % 35.8 % (15.0-51.0); MEAN CORPUSCULAR HEMOGLOBIN 27.7 pg (29.0-33.0); MEAN CORPUSCULAR HGB CONC 31.7 g/dl (32.0-37.0); MEAN CORPUSCULAR VOLUME 87.3 fl (82.0-101.0); MEAN PLATELET VOLUME 11.9 fl (7.4-10.4); MONOCYTE # 0.7 10^3/ul (0.3-0.9); MONOCYTES % 9.1 % (0.0-11.0); NEUTROPHIL # 3.8 10^3/ul (1.6-7.5); NEUTROPHILS % 50.9 % (39.0-77.0); PLATELET COUNT 172 10^3/UL (140-415); RED BLOOD COUNT 3.32 10^6/ul (4.20-5.40); RED CELL DISTRIBUTION WIDTH 13.6 % (11.5-14.5); WHITE BLOOD COUNT 7.4 10^3/ul (4.8-10.8)
[2016-09-12 07:55] LABS: POTASSIUM 4.8 mmol/L (3.5-5.1)
[2016-09-12 07:58] LABS: CREATININE 2.92 mg/dl (0.44-1.00)
[2016-09-12 07:59] LABS: CALCIUM 8.2 mg/dl (8.4-10.2); MAGNESIUM 1.9 mg/dl (1.7-2.5); PHOSPHORUS 5.1 mg/dl (2.5-4.9)
[2016-09-12] MEDS: INSULIN ASPART [NOVOLOG] 3 ML PEN SC SCH ×6 (08:00→20:20)
[2016-09-12] MEDS: LORATADINE 10 MG TAB PO SCH ×2 (09:00→17:56)
[2016-09-12] MEDS ORDERED: INSULIN GLARGINE [LANtus] 3 ML PEN SC SCH (09:00)
[2016-09-12] MEDS: DOCUSATE SODIUM 100 MG CAP PO SCH ×2 (09:12→20:13)
[2016-09-12] MEDS: ATORVASTATIN 80 MG TAB PO SCH (09:12)
[2016-09-12] MEDS: CLOPIDOGREL 75 MG TAB PO SCH (09:12)
[2016-09-12] MEDS: METOPROLOL 25 MG TAB PO SCH ×2 (09:13→20:16)
[2016-09-12] MEDS: ASPIRIN 81 MG TAB PO SCH (09:13)
--- NOTE | 2016-09-12 10:22 | PN ---
DATE: 09/12/2016 SUBJECTIVE: The patient is stable, no acute events overnight. No fevers, chills, nausea, vomiting. No shortness of breath. OBJECTIVE: VITAL SIGNS: Blood pressure is 144/63, respiratory rate 20, pulse 77, temperature 98.4. HEENT: Head is normocephalic. NECK: Supple. HEART: Regular rate. LUNGS: Show diminished breath sounds at base. ABDOMEN: Soft, nontender to palpation. No rebound or guarding. EXTREMITIES: Negative for clubbing, cyanosis, no edema. DERMATOLOGIC: No rashes. MUSCULOSKELETAL: No joint effusions. NEUROLOGIC: No change in exam. MEDICATIONS: Reviewed. LABORATORY DATA: Showed sodium 141, potassium 4.8, chloride 115, bicarbonate 17, BUN 43, creatinine 2.92, phosphorus 5.1. White count 7.4, hemoglobin 9.2, hematocrit 29.0, platelet count is 172. ASSESSMENT AND PLAN: 1. Nonoliguric acute kidney injury on top of chronic kidney disease stage III with a previous basel ine creatinine of 1.5 mg/dL. Etiology of current acute kidney injury secondary to acute tubular nec rosis and hemodynamics. The patient's urinalysis shows coarse granular casts consistent with tubula r injury. The patient does, however, have significant proteinuria and a protein/creatinine ratio an d repeat urinalysis pending. The patient's renal function has improved initially with IV fluids and the creatinine appears to be stabilized around 2.9 mg/dL in the last 24 hours. At this point, cont inue current treatment plan, supportive care, renally dose all meds. Will discontinue IV fluids as the patient's volume replete. The patient's renal ultrasound also shows echogenic kidneys consisten t with medical renal disease and nonobstructing calculi in the left kidney. Would otherwise continu e supportive care, renally dose all medications, avoid nephrotoxins. 2. Chronic kidney disease stage III with nephrotic range proteinuria. Etiology is likely secondary to diabetic nephropathy. The patient is currently in acute kidney injury as stated above. At this point, will continue disease factor modification, good glycemic and blood pressure control. SPEP, UPEP, and immunofixation currently pending for further evaluation of proteinuria. Defer any CHRISTI inh ibitor or ARB at this time. 3. Hyperchloremic metabolic acidosis secondary to acute kidney injury in conjunction with IV fluids . Continue to monitor. 4. Anemia of chronic disease. Monitor hemoglobin and hematocrit levels. 5. Mineral bone disorder, continue to monitor calcium and phosphorus levels. 6. Urinary tract infection. Continue current antibiotic therapy. 7. Diabetes. Continue current insulin regimen. 8. Hypertension. Continue current blood pressure regimen. 9. Hyperkalemia, resolved. Dictated By: ANDRES LIEBERMAN/BOBBY Conf#: [id number] DID#: [id number]
--- NOTE | 2016-09-12 14:08 | PN ---
Date/Time of Note Date/Time of Note DATE: 09/12/16 TIME: 14:07 Assessment/Plan VTE Prophylaxis VTE Prophylaxis Intervention: SCD's Lines/Catheters IV [facility] Peripheral IV Assessment/Plan Chief Complaint/Hosp Course 1. Symptomatic urinary tract infection Cultures are negative so far, continue Rocephin IV 2. Acute on chronic kidney disease-improved with IV fluids Nephrology consultation appreciated -IVF now held per Renal 3. Diabetes-sugars labile -A1c at 11.7 Insulin decreased because of hypoglycemia 4. Hypertension- Continue home medications. 5. Hyperkalemia-resolved 6. Prophylaxis-Sequential compression devices Dispo- Possible DC in 1-2 Days Problems: Subjective 24 Hr Interval Summary Constitutional: no complaints Exam/Review of Systems Vital Signs Vitals Vital Signs Date Time Temp Pulse Resp B/P Pulse Ox O2 Delivery O2 Flow Rate FiO2 09/12/16 12:12 98.6 91 20 130/62 95 09/12/16 04:00 Room Air 09/10/16 19:43 3.0 Intake and Output 09/11/16 09/11/16 09/12/16 15:00 23:00 07:00 Intake Total 400 ml 1140 ml Balance 400 ml 1140 ml Exam Constitutional: alert Respiratory: clear to auscultation Cardiovascular: regular rate and rhythm Gastrointestinal: soft, No distended Musculoskeletal: nl extremities to inspection Results Result Diagram: 09/12/16 0608 09/12/16 0608 Results 24 hrs Laboratory Tests Test 09/11/16 14:39 09/11/16 17:06 09/11/16 21:42 09/12/16 02:49 Bedside Glucose 115 173 222 H 164 Test 09/12/16 06:08 09/12/16 08:26 09/12/16 11:57 White Blood Count 7.4 # Red Blood Count 3.32 L Hemoglobin 9.2 L Hematocrit 29.0 L Mean Corpuscular Volume 87.3 Mean Corpuscular Hemoglobin 27.7 L Mean Corpuscular Hemoglobin Concent 31.7 L Red Cell Distribution Width 13.6 Platelet Count 172 Mean Platelet Volume 11.9 H Neutrophils % 50.9 Lymphocytes % 35.8 Monocytes % 9.1 Eosinophils % 3.4 Basophils % 0.4 Nucleated Red Blood Cells % 0.0 Neutrophils # 3.8 Lymphocytes # 2.6 Monocytes # 0.7 Eosinophils # 0.3 Basophils # 0.0 Nucleated Red Blood Cells # 0.0 Sodium Level 141 Potassium Level 4.8 Chloride Level 115 H Carbon Dioxide Level 17 L Anion Gap 14 Blood Urea Nitrogen 43 H Creatinine 2.92 H Glucose Level 62 #L Calcium Level 8.2 L Phosphorus Level 5.1 H Magnesium Level 1.9 Bedside Glucose 64 L 182 Medications Medications Current Medications Ondansetron HCl (Zofran Inj) 4 mg Q6H PRN IV NAUSEA AND/OR VOMITING; Start 03/19 at 19:00 Acetaminophen (Tylenol Tab) 650 mg Q6H PRN PO PAIN LEVEL 1-3 OR FEVER Last administered on 09/12/16 04:23; Admin Dose 650 MG; Start 09/10/16 at 19:00 Acetaminophen/ Hydrocodone Bitart ([place] (5/325)) 1 tab Q6H PRN PO MODERATE PAIN LEVEL 4-6; Start 09/10/16 at 19:00 Morphine Sulfate (morphine) 2 mg Q4H PRN IV SEVERE PAIN LEVEL 7-10; Start 09/10 at 19:00 Docusate Sodium (Colace) 100 mg Q12H PRN PO CONSTIPATION; Start 09/10/16 at 19: 00 Zolpidem Tartrate 5 mg 5 mg QHS PRN PO SLEEP; Start 09/10/16 at 19:00 Ceftriaxone Sodium (Rocephin) 50 ml @ 100 mls/hr Q24H IVPB Last administered on 09/11/16 18:26; Admin Dose 100 MLS/HR; Start 09/10/16 at 19:00 Aspirin (Aspirin) 81 mg DAILY PO Last administered on 09/12/16 09:13; Admin Dose 81 MG; Start 09/11/16 at 09:00 Atorvastatin Calcium (Lipitor) 80 mg DAILY PO Last administered on 09/12/16 09 :12; Admin Dose 80 MG; Start 09/11/16 at 09:00 Clopidogrel Bisulfate (plaVIX) 75 mg DAILY PO Last administered on 09/12/16 09 :12; Admin Dose 75 MG; Start 09/11/16 at 09:00 Docusate Sodium (Colace) 100 mg BID PO Last administered on 09/12/16 09:12; Admin Dose 100 MG; Start 09/10/16 at 21:00 Hydralazine HCl (Apresoline) 25 mg BID PO Last administered on 09/12/16 09:12 ; Admin Dose 25 MG; Start 09/10/16 at 21:00 Loratadine (Claritin) 10 mg DAILY PO Last administered on 09/11/16 17:32; Admin Dose 10 MG; Start 09/11/16 at 09:00 Miscellaneous Information 1 ea NOTE XX ; Start 09/10/16 at 19:30 Glucose (Glutose) 15 gm Q15M PRN PO DECREASED GLUCOSE; Start 09/10/16 at 19:30 Glucose (Glutose) 22.5 gm Q15M PRN PO DECREASED GLUCOSE; Start 09/10/16 at 19: 30 Dextrose (D50w Syringe) 25 ml Q15M PRN IV DECREASED GLUCOSE; Start 09/10/16 at 19:30 Dextrose (D50w Syringe) 50 ml Q15M PRN IV DECREASED GLUCOSE; Start 09/10/16 at 19:30 Glucagon (Glucagen) 1 mg Q15M PRN IM DECREASED GLUCOSE; Start 09/10/16 at 19:30 Glucose (Glutose) 15 gm Q15M PRN BUCCAL DECREASED GLUCOSE; Start 09/10/16 at 19 :30 Diagnostic Test (Pha) (Accu-Chek) 1 ea 02 XX Last administered on 09/12/16 02: 54; Admin Dose 1 EA; Start 09/11/16 at 02:00 Metoprolol Tartrate (Lopressor) 25 mg BID PO Last administered on 09/12/16 09: 13; Admin Dose 25 MG; Start 09/10/16 at 21:00 Insulin Glargine (Lantus) 20 unit QAM SC Last administered on 09/12/16 09:30; Admin Dose 20 UNIT; Start 09/12/16 at 09:00 Diphenhydramine HCl (Benadryl) 25 mg Q6H PRN PO ITCHING Last administered on 03:59; Admin Dose 25 MG; Start 09/12/16 at 03:00 ROMEO NIEVES Sep 12, 2016 14:08
[2016-09-12] MEDS ORDERED: hydrALAzine 20 MG INJ IV PRN (18:00)
[2016-09-12] MEDS: CEFTRIAXONE 1 GM/50 ML (PMX) 50 ML IVPB SCH (19:50)
[2016-09-12 23:00] LABS: ALBUMIN 2.6 g/dL (3.8-4.8)
[2016-09-13 01:28] VITALS: BP_SYST 114; BP_SYST 122; BP_DIAS 57; BP_DIAS 63
[2016-09-13] MEDS: ACCUCHECK AT 2AM (Patients on SS coverage) XX SCH (02:00)
[2016-09-13 05:28] LABS: ADD SCAN DIFF NO
[2016-09-13 05:36] LABS: BASOPHILS % 0.6 % (0.0-2.0); EOSINOPHILS # 0.3 10^3/ul (0.0-0.5); EOSINOPHILS % 4.6 % (0.0-7.0); HEMATOCRIT 29.7 % (37.0-47.0); HEMOGLOBIN 9.4 g/dl (12.0-16.0); LYMPHOCYTES # 2.6 10^3/ul (0.8-2.9); LYMPHOCYTES % 37.8 % (15.0-51.0); MEAN CORPUSCULAR HEMOGLOBIN 27.5 pg (29.0-33.0); MEAN CORPUSCULAR HGB CONC 31.6 g/dl (32.0-37.0); MEAN CORPUSCULAR VOLUME 86.8 fl (82.0-101.0); MEAN PLATELET VOLUME 11.6 fl (7.4-10.4); MONOCYTE # 0.6 10^3/ul (0.3-0.9); MONOCYTES % 9.5 % (0.0-11.0); NEUTROPHIL # 3.2 10^3/ul (1.6-7.5); NEUTROPHILS % 47.2 % (39.0-77.0); PLATELET COUNT 173 10^3/UL (140-415); RED BLOOD COUNT 3.42 10^6/ul (4.20-5.40); RED CELL DISTRIBUTION WIDTH 13.6 % (11.5-14.5); WHITE BLOOD COUNT 6.7 10^3/ul (4.8-10.8)
[2016-09-13 05:43] LABS: POTASSIUM 4.9 mmol/L (3.5-5.1)
[2016-09-13 05:45] LABS: CREATININE 2.76 mg/dl (0.44-1.00)
[2016-09-13 05:46] LABS: PHOSPHORUS 5.4 mg/dl (2.5-4.9)
[2016-09-13 05:47] LABS: CALCIUM 8.1 mg/dl (8.4-10.2); MAGNESIUM 1.9 mg/dl (1.7-2.5)
[2016-09-13 07:42] LABS: URINE COLOR LT. YELLOW (YELLOW)
[2016-09-13 07:43] LABS: URINE KETONES (Dip) NEGATIVE (NEGATIVE); URINE TOTAL PROTEIN (Dip) 2+ (NEGATIVE)
[2016-09-13 07:44] LABS: ADD UMIC YES; URINE BILIRUBIN (Dip) NEGATIVE (NEGATIVE); URINE BLOOD (Dip) NEGATIVE (NEGATIVE); URINE LEUKOCYTE ESTERASE (Dip) TRACE (NEGATIVE); URINE NITRITE (Dip) NEGATIVE (NEGATIVE); URINE UROBILINOGEN (Dip) 0.2 E.U./dL (0.1-1.0)
[2016-09-13 07:45] LABS: BACTERIA,URINE FEW; URINE RBCS NONE SEEN /HPF (0)
[2016-09-13 07:50] VITALS: BP 117/66; RESP 18
[2016-09-13] MEDS: INSULIN ASPART [NOVOLOG] 3 ML PEN SC SCH ×4 (08:00→19:50)
[2016-09-13] MEDS ORDERED: INSULIN GLARGINE [LANtus] 3 ML PEN SC SCH (09:00)
[2016-09-13] MEDS: ASPIRIN 81 MG TAB PO SCH (09:25)
[2016-09-13] MEDS: DOCUSATE SODIUM 100 MG CAP PO SCH ×2 (09:25→19:50)
[2016-09-13] MEDS: LORATADINE 10 MG TAB PO SCH (09:26)
[2016-09-13] MEDS: ATORVASTATIN 80 MG TAB PO SCH (09:26)
[2016-09-13] MEDS: METOPROLOL 25 MG TAB PO SCH ×2 (09:26→19:51)
[2016-09-13] MEDS: CLOPIDOGREL 75 MG TAB PO SCH (09:26)
--- NOTE | 2016-09-13 11:43 | PN ---
DATE: 09/13/2016 SUBJECTIVE: The patient is stable. No acute events overnight. No fevers, chills, nausea, vomiting . No shortness of breath. OBJECTIVE: VITAL SIGNS: Blood pressure is 122/62, respirations 18, pulse 81, temperature 98.2. HEENT: Head is normocephalic. NECK: Supple. HEART: Regular rate. LUNGS: Showed diminished breath sounds at the base. ABDOMEN: Soft, nontender to palpation. No rebound or guarding. EXTREMITIES: Negative for clubbing or cyanosis. No edema. DERMATOLOGIC: No rashes. MUSCULOSKELETAL: Have no joint effusion. NEUROLOGIC: No change in exam. MEDICATIONS: The patient's medications have been reviewed. LABORATORY DATA: Shows sodium 140, potassium 4.2, chloride 112, BUN 39, creatinine 2.76, phosphorus 5.4, calcium 8.1. White count 6.7, hemoglobin 9.4, platelet count is 173. The patient's SPEP show s a normal pattern. ASSESSMENT AND PLAN: 1. Nonoliguric acute kidney injury on top of chronic kidney disease stage III, with a previous base line creatinine of 1.5 mg/dL. Etiology of acute kidney injury is possibly secondary to acute tubula r necrosis. The patient's renal function is slowly improving with supportive care. The patient's SP EP was negative for any monoclonal findings. At this point will continue the current treatment plan , supportive care, renally dose all medications, avoid nephrotoxins. 2. Chronic kidney disease stage III, with nephrotic range proteinuria. Etiology is secondary to di abetic nephropathy. The patient has acute kidney injury as stated above goal. Plan is to continue the current treatment plan. Continue to monitor. 3. Metabolic acidosis secondary to acute kidney injury. Continue to monitor. 4. Anemia of chronic disease. Monitor hemoglobin and hematocrit levels. 5. Mineral bone disorder. Continue to monitor calcium and phosphorus levels. 6. Urinary tract infection. Continue the current antibiotic regimen. 7. Diabetes. Continue the current insulin regimen. 8. Hypertension. Continue the current blood pressure regimen. Dictated By: ANDRES LIEBERMAN/BOBBY Conf#: [id number] DID#: [id number]
--- NOTE | 2016-09-13 13:32 | PDOCDIS ---
Discharge Instructions CONDITION Patient Condition: Good HOME CARE INSTRUCTIONS: Special Diet: DIABETIC DIET ACTIVITY: Activity Restrictions: No Restrictions FOLLOW UP/APPOINTMENTS Appointments F/U WITH YOUR PCP IN 1-2 WEEKS ROMEO NIEVES Sep 13, 2016 13:32
[2016-09-13 15:27] LABS: CREATININE, RANDOM URINE 33 mg/dL (20-320); PROTEIN/CREATININE RATIO 11273 mg/g creat (21-161)
[2016-09-13] MEDS: CEFTRIAXONE 1 GM/50 ML (PMX) 50 ML IVPB SCH (19:10)
--- NOTE | 2016-09-13 19:35 | DS ---
DATE OF ADMISSION: 09/10/2016 DATE OF DISCHARGE: 09/13/2016 DISCHARGE DIAGNOSES: 1. Urinary tract infection, status post antibiotics. 2. Acute on chronic kidney injury, now stable. 3. Diabetes. She is labile and should followup with her primary care physician. 4. Hypertension, stable. Continue home medications. 5. Hyperkalemia, resolved. HOSPITAL COURSE: The patient is a 65-year-old female with history of diabetes, hypertension, CKD. The patient presents with dizziness, dysuria. The patient had acute on chronic kidney disease. She did receive IV fluids and her creatinine improved. She was seen by nephrology. UA did suggest a UT I. She was given IV antibiotics. Of note, her blood and urine cultures were negative. The patient did receive Rocephin during the hospitalization. The patient was felt to be stable for discharge. On day of discharge, the patient's vitals and labs were stable. She had no acute complaints and qu estions were answered. CONDITION ON DISCHARGE: Stable. DISPOSITION: To home. MEDICATIONS: The patient to continue his usual home medications. Patient was recommended to stop t aking Bactrim. No new medications were prescribed. FOLLOWUP: She is to follow up with PCP in 1 to 2 weeks. Greater than 30 minutes was spent coordinating discharge of patient. Dictated By: ROMEO NIEVES MD BS/NTS Conf#: [id number] DID#: [id number]
[2016-09-13 20:11] VITALS: BP 141/66; RESP 19
[2016-09-14 16:10] LABS: MICROALBUMIN 157.6 mg/dL
== END 2016-09-13 21:27 | disposition home or self-care (01) | DRG 689 ==
LOC: E/R 15:26 → MS4 17:50 → PP2 09-12 18:32
PROVIDERS: ADMIT Internal Medicine; ATTEND Internal Medicine
DX: N30.00 Acute cystitis without hematuria (principal); N17.0 Acute kidney failure with tubular necrosis; E11.21 Type 2 diabetes mellitus with diabetic nephropathy; D64.9 Anemia, unspecified; I25.10 Atherosclerotic heart disease of native coronary artery without angina pectoris; Z79.4 Long term (current) use of insulin; E87.5 Hyperkalemia; I12.9 Hypertensive chronic kidney disease with stage 1 through stage 4 chronic kidney disease, or unspecified chronic kidney disease; N18.3 Chronic kidney disease, stage 3 (moderate)
CPT/HCPCS: 36415; 71010; 76775; 80048; 80053; 81001; 81003; 82043; 82570; 82947; 82962; 83036; 83605; 83735; 84100; 84155; 84156; 84165; 84166; 84300; 84484; 85025; 85610; 85730; 86320; 86325; 87040; 87086; 93005; 96365; 96375; J0360; J0696; J0744; J1815; J7030; J7120

== ENCOUNTER 2016-10-23 15:57 | Emergency (ER) | payer OTHER ==
[~2016-10-23] VITALS: Ht 157.5 cm; Wt 81.5 kg
[~2016-10-23 15:57] MED LIST changes: -ATOR40TA68 PO; +ATOR80TA75 PO; -CALC200T26 PO; -CHOL100062 PO; +CLOP75TA4 PO; -FERGON PO; -FURO20TA3 PO; -IBUP-1542 PO; +INSU100I12 SQ; -ISOS30TA5 PO; +LORA-186 PO; +METO-429 PO; -NITR0.4T6 SL
[2016-10-23 16:00] VITALS: Ht 157.5 cm; Wt 81.5 kg
[2016-10-23] MEDS ORDERED: HYDROCODONE/APAP (5/325) TAB PO ONE (16:30)
--- NOTE | 2016-10-23 16:31 | ERD ---
ER Documentation Chief Complaint Date/Time DATE: 10/23/16 TIME: 16:29 Chief Complaint R FOOT SWELLING HPI 65-year-old female comes emergency department with right-sided foot swelling and pain for the past 3 weeks. Patient states that she has had diffuse leg pain , and most of the swelling is at the top of her foot. She has not had any recent trauma, or surgeries. She has not had any fevers or chills. ROS All systems reviewed and are negative except as per history of present illness. Medications Home Meds Active Scripts Hydrocodone/Acetaminophen ([place] 5-325 Tablet) 1 Each Tablet, 1 TAB PO Q6H Y for PAIN, #7 TAB Prov:RICHARD FARAH PA-C 10/23/16 Hydralazine Hcl* (Hydralazine Hcl*) 25 Mg Tab, 25 MG PO BID, #60 TAB Prov:DERRICK MEEKS MD 11/14/15 Docusate Sodium* (Colace*) 100 Mg Capsule, 100 MG PO BID, #60 CAP Prov:DERRICK MEEKS MD 11/14/15 Aspirin (Aspirin) 81 Mg Chew, 81 MG PO DAILY, #30 TAB Prov:DERRICK MEEKS MD 11/14/15 Reported Medications Loratadine* (Claritin*) 10 Mg Tablet, 10 MG PO DAILY, TAB 09/10/16 Atorvastatin* (Atorvastatin*) 80 Mg Tablet, 80 MG PO DAILY, #30 TAB 09/10/16 Metoprolol Tartrate* (Lopressor*) 50 Mg Tab, 25 MG PO BID, #60 TAB 09/10/16 Clopidogrel Bisulfate* (Clopidogrel Bisulfate*) 75 Mg Tablet, 75 MG PO DAILY, # 30 TAB 09/10/16 Insulin Lispro (Humalog Kwikpen U-100) 100 Unit/1 Ml Insuln.pen, 20 UNIT SQ TID 09/10/16 Insulin Glargine* (Lantus*) 100 Unit/Ml Soln, 40 UNIT SC QAM, #1 VIAL 02/10/16 Allergies Allergies: Coded Allergies: Penicillins (Verified Allergy, Unknown, 09/10/16) PMhx/Soc History of Surgery: Yes (Cesarian X 2, carotid SX) Anesthesia Reaction: No Hx Neurological Disorder: Yes (Bilateral hand numbness ) Hx Respiratory Disorders: No Hx Cardiac Disorders: Yes (HTN, 5 stents, ) Hx Psychiatric Problems: No Hx Miscellaneous Medical Probl: No Hx Alcohol Use: No Hx Substance Use: No Hx Tobacco Use: No Physical Exam Vitals Vital Signs Date Time Temp Pulse Resp B/P Pulse Ox O2 Delivery O2 Flow Rate FiO2 10/23/16 16:00 97.4 96 18 115/55 100 Physical Exam General: Well-developed, well-nourished. The patient appears in no acute distress. HEENT: Head is normocephalic, atraumatic. No scleral icterus. Neck: Supple. Nontender. Lungs: Clear to auscultation. Normal air movement. Heart: Regular rate and rhythm. S1 and S2 are normal. No murmurs, gallops, or rubs. Abdomen: Nondistended. Extremities: Swelling diffuse on the top of her right foot, tender to palpation , there is no warmth or erythema or fluctuance. No bony deformities. Negative Homans sign. Skin: Normal turgor. No rash or lesions. Results 24 hrs Current Medications Medications (Trade) Dose Ordered Sig/[place] Route PRN Reason Start Time Stop Time Status Last Admin Dose Admin Acetaminophen/ Hydrocodone Bitart ([place] (5/325)) 1 tab ONCE ONCE PO 10/23/16 16:30 10/23/16 16:31 DC 10/23/16 16:30 PROCEDURE: Right XR Foot. CLINICAL INDICATION: Swelling of the right foot. TECHNIQUE: AP lateral and oblique views of the right foot was obtained. The images were reviewed on a PACS workstation. COMPARISON: No. FINDINGS: There is diffuse soft tissue swelling of the right foot. No subcutaneous emphysema is identified. There is no radiographic evidence of osteomyelitis. The joint spaces are normal. There is an enthesiophyte at the insertion site of the Achilles tendon. There is a plantar spur off of the right os calcaneus. IMPRESSION: 1. Nonspecific soft tissue swelling of the right foot and ankle. No radiographic evidence of gas gangrene or osteomyelitis. 2. Plantar spur of the right os calcaneus. 3. Enthesopathy of the Achilles tendon. RPTAT:AAJJ Physician Andre Date Time Electronically viewed and signed by Physician Andre on 10/23/2016 17:18 JM/ CC: RICHARD FARAH PA-C PROCEDURE: US Lower extremity venous. CLINICAL INDICATION: Leg pain, swelling TECHNIQUE: Multiple sonographic images of the right lower extremity deep venous system was obtained utilizing grayscale, color-flow, compressive sonography and doppler imaging with augmentation. COMPARISON: None available FINDINGS: There is normal compressibility / flow within the right common femoral, femoral and popliteal veins. The visualized deep veins of the calf are unremarkable. IMPRESSION: No sonographic evidence for deep venous thrombosis in the right lower extremity. RPTAT: VV .Mikey Crouch MD, MD Date Time Electronically viewed and signed by .Mikey Crouch MD, on 10/23/2016 16:58 .O/ CC: RICHARD FARAH PA-C Procedures/MDM ED course: Patient was given [place] for pain. MDM: 62-year-old female comes in with right foot swelling, patient has an x-ray done, there is no evidence of gangrene, osteomyelitis, infection. Venous ultrasound study ruled out DVT today. She has peripheral edema however is unilateral and her pulmonary examination is normal, there are no signs of failure at this time. She was advised to elevate the leg, use compression stockings. She will be given a short course of [place] for pain. Departure Diagnosis: Primary Impression: Peripheral edema Condition: Good RICHARD FARAH PA-C October 23, 2016 16:31
--- NOTE | 2016-10-23 16:58 | RADRPT ---
PROCEDURE: US Lower extremity venous. CLINICAL INDICATION: Leg pain, swelling TECHNIQUE: Multiple sonographic images of the right lower extremity deep venous system was obtained utilizing grayscale, color-flow, compressive sonography and doppler imaging with augmentation. COMPARISON: None available FINDINGS: There is normal compressibility / flow within the right common femoral, femoral and popliteal veins. The visualized deep veins of the calf are unremarkable. IMPRESSION: No sonographic evidence for deep venous thrombosis in the right lower extremity. RPTAT: VV .Mikey Crouch MD, MD Date Time Electronically viewed and signed by .Mikey Crouch MD, on 10/23/2016 16:58 .O/
--- NOTE | 2016-10-23 17:18 | RADRPT ---
PROCEDURE: Right XR Foot. CLINICAL INDICATION: Swelling of the right foot. TECHNIQUE: AP lateral and oblique views of the right foot was obtained. The images were reviewed on a PACS workstation. COMPARISON: No. FINDINGS: There is diffuse soft tissue swelling of the right foot. No subcutaneous emphysema is identified. There is no radiographic evidence of osteomyelitis. The joint spaces are normal. There is an enthe siophyte at the insertion site of the Achilles tendon. There is a plantar spur off of the right os calcaneus. IMPRESSION: 1. Nonspecific soft tissue swelling of the right foot and ankle. No radiographic evidence of gas ga ngrene or osteomyelitis. 2. Plantar spur of the right os calcaneus. 3. Enthesopathy of the Achilles tendon. RPTAT:AAJJ Physician Andre Date Time Electronically viewed and signed by Physician Andre on 10/23/2016 17:18 JO ANN/
[2016-10-23] MEDS ORDERED: HYDR-906 PO (17:31)
== END 2016-10-23 17:43 | disposition home or self-care (01) ==
LOC: FTE 15:57
DX: R60.0 Localized edema (principal); I10 Essential (primary) hypertension; E11.9 Type 2 diabetes mellitus without complications; Z79.4 Long term (current) use of insulin; Z79.82 Long term (current) use of aspirin; Z98.61 Coronary angioplasty status
CPT/HCPCS: 73630; 93971; Z7502; Z7610

== ENCOUNTER 2016-12-05 15:09 | Emergency (ER) | payer MEDICAID, OTHER ==
[~2016-12-05] VITALS: Ht 160 cm; Wt 90.0 kg
[~2016-12-05 15:09] MED LIST changes: +HYDR-906 PO
[2016-12-05 15:21] VITALS: Ht 160 cm; Wt 90.0 kg
[2016-12-05] MEDS ORDERED: ASPIRIN 325 MG TAB PO STA (17:38)
[2016-12-05] MEDS ORDERED: LORAZEPAM 2 MG INJ IV ONE (18:00)
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
--- NOTE | 2016-12-05 18:25 | RADRPT ---
PROCEDURE: Chest x-ray CLINICAL INDICATION: Chest pain TECHNIQUE: Chest single view COMPARISON: None FINDINGS: The heart is normal in size. The pulmonary vessels are normal in caliber. There is mild atheroscler otic aortic calcification. New linear atelectasis is noted in the left mid lung field. Lungs other cox clear. There is calcified right paratracheal lymph node suggesting old granulomatous disease. C ostophrenic angles are sharp. The bony thorax is unremarkable. There is a metallic pin overlying t he gastroesophageal junction region. This likely represent something overlying the patient. IMPRESSION: 1. New linear left mid lung atelectasis. 2. Atherosclerotic aortic calcification. 3. Calcified right paratracheal lymph node suggesting old granulomatous disease. 4. Linear metallic foreign body projected over the gastroesophageal junction likely represent somet cori overlying the patient RPTAT: HH .Usman Larson MD, Date Time Electronically viewed and signed by .Usman Larson MD, on 12/05/2016 18:25 .W/
[2016-12-05 18:26] LABS: ADD SCAN DIFF NO
[2016-12-05 18:29] LABS: BASOPHILS % 0.5 % (0.0-2.0); EOSINOPHILS # 0.2 10^3/ul (0.0-0.5); HEMATOCRIT 28.1 % (37.0-47.0); LYMPHOCYTES # 2.3 10^3/ul (0.8-2.9); LYMPHOCYTES % 30.2 % (15.0-51.0); MEAN CORPUSCULAR HEMOGLOBIN 27.1 pg (29.0-33.0); MEAN CORPUSCULAR VOLUME 84.6 fl (82.0-101.0); MEAN PLATELET VOLUME 12.4 fl (7.4-10.4); MONOCYTE # 0.5 10^3/ul (0.3-0.9); MONOCYTES % 7.1 % (0.0-11.0); NEUTROPHIL # 4.5 10^3/ul (1.6-7.5); NEUTROPHILS % 59.9 % (39.0-77.0); PLATELET COUNT 231 10^3/UL (140-415); RED BLOOD COUNT 3.32 10^6/ul (4.20-5.40); WHITE BLOOD COUNT 7.6 10^3/ul (4.8-10.8)
[2016-12-05 18:46] LABS: INR 1.1; PROTIME 14.2 Sec (12.2-14.2); PT RATIO 1.1
[2016-12-05 18:47] LABS: PARTIAL THROMBOPLASTIN TIME 26.5 Sec (25.0-35.0)
[2016-12-05 18:48] LABS: CALCIUM 8.5 mg/dl (8.4-10.2); CREATININE 2.79 mg/dl (0.44-1.00); POTASSIUM 4.4 mmol/L (3.5-5.1)
[2016-12-05 18:59] LABS: TROPONIN-I 0.03 ng/ml (0.00-0.12)
[2016-12-05] MEDS ORDERED: ALPR0.25 PO (19:38)
[2016-12-05 20:51] VITALS: BP 162/74; PULSE 91; RESP 18; TEMP 98.1
== END 2016-12-05 20:54 | disposition home or self-care (01) ==
LOC: E/R 15:09
DX: F41.0 Panic disorder [episodic paroxysmal anxiety] (principal); R07.2 Precordial pain; R79.89 Other specified abnormal findings of blood chemistry; E11.65 Type 2 diabetes mellitus with hyperglycemia; N28.9 Disorder of kidney and ureter, unspecified; I10 Essential (primary) hypertension; R06.02 Shortness of breath; Z79.4 Long term (current) use of insulin; Z79.82 Long term (current) use of aspirin; Z98.61 Coronary angioplasty status
CPT/HCPCS: 36415; 71010; 80048; 83880; 84484; 85025; 85610; 85730; 93005; 96374; J2060; Z7502; Z7610